=== PATIENT | female | born 1950 | race Hispanic/Latino ===

== ENCOUNTER 2017-03-30 19:00 | Emergency (ER) | payer MEDICAID, MEDICARE ==
[2017-03-30 22:35] LABS: HEMOGLOBIN 12.2 g/dL (11.0-16.0); MEAN CELL VOLUME 87.8 fL (81.0-99.0); MEAN CORPUSCULAR HEMOGLOBIN 27.8 pg (27.0-31.0); MEAN CORPUSCULAR HGB CONC 31.7 g/dL (33.0-37.0); MEAN PLATELET VOLUME 8.7 fL (7.2-11.7); RBC 4.38 Mil/uL (3.80-5.20); WHITE BLOOD COUNT 9.6 K/uL (4.8-10.8)
[2017-03-30 22:42] LABS: ALB/GLOB RATIO 1.3 (1.0-2.1); ALBUMIN 4.1 g/dL (3.5-5.0); ALT/SGPT 22 U/L (9-52); AST/SGOT 17 U/L (14-36); BLOOD UREA NITROGEN 15 mg/dL (7-17); CALCIUM 8.6 mg/dl (8.6-10.4); GFR AFRICAN-AMERICAN > 60; GFR NON-AFRICAN AMERICAN > 60
--- NOTE | 2017-03-31 08:19 | CT ---
PROCEDURE: CT HEAD WITHOUT CONTRAST. HISTORY: Trauma COMPARISON: None available. TECHNIQUE: Axial computed tomography images were obtained through the head/brain without intravenous contrast. Radiation dose: Total exam DLP = 795.44 mGy-cm. This CT exam was performed using one or more of the following dose reduction techniques: Automated exposure control, adjustment of the mA and/or kV according to patient size, and/or use of iterative reconstruction technique. FINDINGS: HEMORRHAGE: No intracranial hemorrhage. BRAIN: There are mild chronic microangiopathic changes. There is no mass, mass effect or abnormal extra-axial fluid collection. VENTRICLES: There is mild age-related global parenchymal volume loss and proportionate enlargement of the ventricles and cortical sulci. CALVARIUM: The skull base and calvarium are normal. PARANASAL SINUSES: There is a fluid level in the left maxillary sinus with aerosolized secretions. The remaining included paranasal sinuses are clear. MASTOID AIR CELLS: Predominantly clear. OTHER FINDINGS: None. IMPRESSION: No acute intracranial abnormality. Mild chronic microangiopathic changes and mild age-related global parenchymal volume loss. Fluid level in the left maxillary sinus could represent acute sinusitis in the appropriate clinical setting. A preliminary report was provided by [employer] [facility].
--- NOTE | 2017-04-18 15:30 | CARD ---
APPROVED REPORT EKG Measurement Heart [id number] <Conclusion> Normal sinus rhythm Low voltage QRS Cannot rule out Anterior infarct, age undetermined Abnormal ECG
== END 2017-03-30 22:59 | disposition home or self-care (01) ==
LOC: C.ER 19:00
DX: S01.01XA Laceration without foreign body of scalp, initial encounter (principal); W18.39XA Other fall on same level, initial encounter; Y93.89 Activity, other specified; Y92.096 Garden or yard of other non-institutional residence as the place of occurrence of the external cause

== ENCOUNTER 2017-05-23 13:44 | Inpatient (IN) | payer MEDICARE ==
[2017-05-23 13:58] VITALS: BMI 32.4
[2017-05-23] MEDS ORDERED: Sodium Chloride 0.9% 1,000 ML IV ONE (14:12)
[2017-05-23] MEDS ORDERED: Sodium Chloride 0.9% 1,000 ML ONE (14:26)
--- NOTE | 2017-05-23 14:39 | C.PDOC ---
History Of Present Illness Patient is a 66 y/o female, whose past medical history includes diabetes and HTN , presents to ED for evaluation of painful mass to left buttock around the tailbone region that developed gradually over the last few days. Pain is described as localized and reproducible. Pt states she had a temperature of 102 at home. Otherwise, denies any drainage, abdominal pain, n/v/d, chills, dysuria , hematuria, frequency, bowel/bladder incontinence or retention, flank pain, focal weakness, sensory deficit. No other complaints at this time. Time Seen by Provider: 05/23/17 14:07 Chief Complaint (Nursing): Abnormal Skin Integrity History Per: Patient History/Exam Limitations: no limitations Onset/Duration Of Symptoms: Days Current Symptoms Are (Timing): Still Present Location Of Injury: Left: Buttock, Posterior: Buttock Quality Of Symptoms: Painful. denies: Itching, Draining Recent travel outside of the [place]: No Additional History Per: Patient Past Medical History Reviewed: Historical Data, Nursing Documentation, Vital Signs Vital Signs: Last Vital Signs Temp 98.2 F 05/25/17 15:00 Pulse 73 05/25/17 15:00 Resp 20 05/25/17 15:00 BP 105/72 05/25/17 15:00 Pulse Ox 96 05/25/17 16:26 - Medical History PMH: Diverticulitis, HTN, Hypercholesterolemia Family History: States: No Known Family Hx - Social History Hx Alcohol Use: No Hx Substance Use: No - Immunization History Hx Influenza Vaccination: Yes Review Of Systems Except As Marked, All Systems Reviewed And Found Negative. Constitutional: Positive for: Fever. Negative for: Chills Cardiovascular: Negative for: Chest Pain, Palpitations Respiratory: Negative for: Cough, Shortness of Breath Gastrointestinal: Negative for: Nausea, Vomiting, Abdominal Pain, Diarrhea, Constipation Genitourinary: Negative for: Dysuria, Frequency, Incontinence, Hematuria, Vaginal Discharge, Pelvic Pain Musculoskeletal: Negative for: Neck Pain Skin: Positive for: Other (painful mass to left buttock around tailbone region) . Negative for: Rash Neurological: Negative for: Weakness, Numbness, Headache, Dizziness Physical Exam - Physical Exam Appears: Non-toxic, No Acute Distress Skin: Normal Color, Warm, Dry, Other (deep tender mass to left gluteus close to anus with mild erythema. No fluctuance. No proximal streaking. ) Head: Normacephalic Eye(s): bilateral: PERRL Oral Mucosa: Moist Neck: Normal ROM, Supple Cardiovascular: Rhythm Regular, No Murmur Respiratory: No Accessory Muscle Use, No Rales, No Rhonchi, No Wheezing Gastrointestinal/Abdominal: Soft, No Tenderness Rectal: Normal Exam, Rectal Tone (normal) Back: Normal Inspection, No CVA Tenderness, No Vertebral Tenderness Extremity: Normal ROM, No Deformity Extremity: Bilateral: Atraumatic Neurological/Psych: Oriented x3, Normal Speech ED Course And Treatment - Laboratory Results Result Diagrams: 05/25/17 07:27 05/25/17 07:27 Lab Interpretation: Abnormal O2 Sat by Pulse Oximetry: 96 (on RA) Pulse Ox Interpretation: Normal - CT Scan/US Ct abd/pelvis Other Rad Studies (CT/US): Radiology Report Reviewed CT/US Interpretation: Creator : Shauna Chase MD. Dictator : Door Closer Mechanic : Contracting Officer : Shauna Chase MD. Approver2 : Report Date : 05/23/2017 17:15:01. My Comment : . PROCEDURE: CT Abdomen and Pelvis with contrast. HISTORY: Right gluteal abscess. COMPARISON: None available. TECHNIQUE: Contrast dose: 100 cc Visipaque 320. Radiation dose: Total exam DLP = 674.47 mGy-cm. This CT exam was performed using one or more of the following dose reduction techniques: Automated exposure control, adjustment of the mA and/or kV according to patient size, and/or use of iterative reconstruction technique. FINDINGS: LOWER THORAX: Mild left basilar atelectasis. No visible pleural effusion or pneumothorax. Moderate hiatal hernia. LIVER: Unremarkable. GALLBLADDER AND BILE DUCTS: Unremarkable. PANCREAS: Unremarkable. SPLEEN: Unremarkable. ADRENALS: Unremarkable. KIDNEYS AND URETERS: The kidneys enhance symmetrically. No hydronephrosis or obstructing calculus identified. VASCULATURE: No aortic aneurysm. BOWEL: Stomach is nondistended. Lack of oral contrast limits evaluation for bowel pathology. Bowel loops appear within normal limits of caliber without evidence of obstruction. APPENDIX: The appendix appears within normal limits of caliber. No secondary signs of acute appendicitis. PERITONEUM: No significant free fluid. No definite free air. LYMPH NODES: No bulky adenopathy. BLADDER : Unremarkable. REPRODUCTIVE: The uterus is present. BONES: Degenerative changes. OTHER FINDINGS: Evidence of left perirectal fluid collection with peripheral hyperdensity/enhancement consistent with abscess measuring approximately 3.0 x 2.4 cm (series 3, image 164). IMPRESSION: Evidence of left perirectal fluid collection with peripheral hyperdensity/enhancement consistent with abscess measuring approximately 3.0 x 2.4 cm. Moderate hiatal hernia. Progress Note: Plan: Blood work, UA, blood culture, Abd & pelvis CT. Patient was given IV fluids, and Toradol. On re-evaluation,pt remained unchanged. Blood work review- mild leukocytosis w/left shift. Imaging results review and c /w perirectal abscess. Case discussed with , admission with surgical consult of recommend. in ED, evaluated pt. Admission cofirmed. NPO after midnight. Pt is in pain. Pt reports, has allergy to morphine " but was able tolerate Dilaudid". Disposition - Disposition Disposition: HOSPITALIZED Disposition Time: 17:25 Condition: STABLE - Clinical Impression Clinical Impression: Perirectal abscess - PA / FAMILY SPECIALIST / Resident Statement MD/DO has reviewed & agrees with the documentation as recorded. - Scribe Statement The provider has reviewed the documentation as recorded by the Anirudh Encarnacion All medical record entries made by the Anirudh were at my direction and personally dictated by me. I have reviewed the chart and agree that the record accurately reflects my personal performance of the history, physical exam, medical decision making, and the department course for this patient. I have also personally directed, reviewed, and agree with the discharge instructions and disposition.
[2017-05-23 14:44] LABS: BASO # 0.1 K/uL (0.0-0.2); BASO % 0.6 % (0.0-2.0); EOS % 0.2 % (0.0-4.0); HEMATOCRIT 35.4 % (34.0-47.0); LYMPH % 5.9 % (20.0-40.0); MEAN CORPUSCULAR HEMOGLOBIN 28.7 pg (27.0-31.0); MEAN CORPUSCULAR HGB CONC 32.6 g/dL (33.0-37.0); MEAN PLATELET VOLUME 8.3 fL (7.2-11.7); MONO # 1.1 K/uL (0.0-0.8); MONO % 6.9 % (0.0-10.0); PLATELET COUNT 265 K/uL (130-400); RED CELL DISTRIBUTION WIDTH 14.7 % (11.5-14.5); WHITE BLOOD COUNT 16.2 K/uL (4.8-10.8)
[2017-05-23 14:59] LABS: CHLORIDE 102 mmol/L (98-107)
[2017-05-23 15:00] LABS: POTASSIUM 4.2 mmol/L (3.6-5.2); SODIUM 140 mmol/L (132-148)
[2017-05-23 15:02] LABS: ALKALINE PHOSPHATASE 71 U/L (38-126); AST/SGOT 12 U/L (14-36); BILIRUBIN,TOTAL 0.5 mg/dL (0.2-1.3); BLOOD UREA NITROGEN 22 mg/dL (7-17); CARBON DIOXIDE 21 mmol/L (22-30); GFR AFRICAN-AMERICAN > 60; TOTAL PROTEIN 7.6 g/dL (6.3-8.3)
[2017-05-23 15:03] LABS: ALT/SGPT 21 U/L (9-52); CALCIUM 10.1 mg/dl (8.6-10.4); GLUCOSE,RANDOM 161 mg/dL (65-105)
[2017-05-23 15:24] LABS: TOTAL CELLS COUNTED 100
[2017-05-23 15:25] LABS: BASOPHIL 1 % (0-2); NEUTROPHIL 86 % (50-75)
[2017-05-23] MEDS ORDERED: Iodixanol 320 MG/ML 100 ML BOTTLE IV ONE (16:44)
--- NOTE | 2017-05-23 17:16 | CT ---
PROCEDURE: CT Abdomen and Pelvis with contrast HISTORY: Right gluteal abscess COMPARISON: None available. TECHNIQUE: Contrast dose: 100 cc Visipaque 320 Radiation dose: Total exam DLP = 674.47 mGy-cm. This CT exam was performed using one or more of the following dose reduction techniques: Automated exposure control, adjustment of the mA and/or kV according to patient size, and/or use of iterative reconstruction technique. FINDINGS: LOWER THORAX: Mild left basilar atelectasis. No visible pleural effusion or pneumothorax. Moderate hiatal hernia. LIVER: Unremarkable. GALLBLADDER AND BILE DUCTS: Unremarkable. PANCREAS: Unremarkable. SPLEEN: Unremarkable. ADRENALS: Unremarkable. KIDNEYS AND URETERS: The kidneys enhance symmetrically. No hydronephrosis or obstructing calculus identified. VASCULATURE: No aortic aneurysm. BOWEL: Stomach is nondistended. Lack of oral contrast limits evaluation for bowel pathology. Bowel loops appear within normal limits of caliber without evidence of obstruction. APPENDIX: The appendix appears within normal limits of caliber. No secondary signs of acute appendicitis. PERITONEUM: No significant free fluid. No definite free air. LYMPH NODES: No bulky adenopathy. BLADDER: Unremarkable. REPRODUCTIVE: The uterus is present. BONES: Degenerative changes. OTHER FINDINGS: Evidence of left perirectal fluid collection with peripheral hyperdensity/enhancement consistent with abscess measuring approximately 3.0 x 2.4 cm (series 3, image 164). IMPRESSION: Evidence of left perirectal fluid collection with peripheral hyperdensity/enhancement consistent with abscess measuring approximately 3.0 x 2.4 cm. Moderate hiatal hernia.
[2017-05-23 17:22] LABS: RBC URINE < 1 /hpf (0-3); TRANSITIONAL EPITHIAL 1 /hpf (0-3); URINE BACTERIA FEW (<OCC); URINE BILIRUBIN NEGATIVE (NEGATIVE); URINE BLOOD NEGATIVE (NEGATIVE); URINE COLOR Yellow (YELLOW); URINE GLUCOSE (UA) NORMAL (Normal); URINE KETONE NEGATIVE (NEGATIVE); URINE LEUKOCYTE ESTERASE 3+ Leu/uL (Negative); URINE PROTEIN NEGATIVE (NEGATIVE); URINE UROBILINOGEN NORMAL mg/dL (0.2-1.0); WBC URINE 48 /hpf (0-5)
[2017-05-23] MEDS ORDERED: Piperacillin/Tazobact 3.375 gm 100 ML IV STA (17:28)
[2017-05-23] MEDS ORDERED: HYDROmorphone 1 mg/ml ISec IVP STA (17:50)
[2017-05-23] MEDS ORDERED: Piperacillin/Tazobact 3.375 gm 100 ML IVPB ONE (17:53)
[2017-05-23] MEDS ORDERED: HYDROmorphone 1 mg/ml ISec ONE (17:53)
--- NOTE | 2017-05-23 17:57 | CP.PCM.CON ---
History of Present Illness - History of Present Illness History of Present Illness: Pt is a 66 y/o female who presents with zackery-anal pain that started 3 days ago which she first noticed while driving. Pt describes a "lump" that grew in size in the past few days and has made it uncomfortable for her to sit. Pt states there is no drainage from the area, but it is tender to palpation and warm. Pt also started having a fever 2 days ago, where she had a temp of 102F. Pt has been taking Motrin for pain control and to reduce the fever. Currently pt admits to fevers and chills. Denies N/V/C. PMHx: Diabetes Mellitus Type II, HTN, HLD, Hypothyroidism, Diverticulitis, Asthma. PSurgHx: Bowel Resection, Hiatal hernia repair. Allergies: Morphine Meds: See MAR Social Hx: Unemployed, lives at home with . Nonsmoker, occasional marihuana use. Review of Systems - Review of Systems Review of Systems: 12 pt ROS reviewed, unremarkable, except as stated in HPI. Past Patient History - Past Medical History & Family History Past Medical History?: Yes - Past Social History Smoking Status: Never Smoked Home Situation {Lives}: With Family - CARDIAC Hx Heart Attack: No Hx Hypercholesterolemia: Yes Hx Hypertension: Yes - PULMONARY Hx Asthma: Yes - RENAL Hx Kidney Stones: Yes - ENDOCRINE/METABOLIC Hx Endocrine Disorders: Yes Hx Diabetes Mellitus Type 2: Yes Hx Hypothyroidism: Yes - GASTROINTESTINAL Hx Diverticulitis: Yes - PSYCHIATRIC Hx Substance Use: No - SURGICAL HISTORY Hx Surgeries: Yes Hx Herniorrhaphy: Yes Other/Comment: BOWEL RESECTION - ANESTHESIA Hx Anesthesia: Yes Hx Anesthesia Reactions: No Meds Allergies/Adverse Reactions: Allergies Allergy/AdvReac Type Severity Reaction Status Date / Time morphine Allergy Verified 05/23/17 15:10 - Medications Medications: Current Medications Piperacillin Sod/Tazobactam Sod (Zosyn 3.375 In Ns 100ml) 100 mls @ 200 mls/hr IV STAT STA Stop: 05/23/17 17:57 Physical Exam - Constitutional Appears: Non-toxic, No Acute Distress - Head Exam Head Exam: ATRAUMATIC - Eye Exam Eye Exam: EOMI - ENT Exam ENT Exam: Mucous Membranes Moist - Respiratory Exam Respiratory Exam: NORMAL BREATHING PATTERN. absent: Accessory Muscle Use - Cardiovascular Exam Cardiovascular Exam: +S1, +S2 - GI/Abdominal Exam GI & Abdominal Exam: Soft Additional comments: Midline abdominal scar. - Rectal Exam Additional comments: Area of fluctuance in the posterior region of rectum. - Extremities Exam Extremities exam: Positive for: normal inspection - Neurological Exam Neurological exam: Alert, Oriented x3 - Psychiatric Exam Psychiatric exam: Normal Affect, Normal Mood - Skin Skin Exam: Normal Color, Warm Additional comments: Warm and mildly erythematous along the zackery-anal region. Results - Vital Signs Recent Vital Signs: Last Vital Signs Temp 100 F H 05/23/17 17:09 Pulse 90 05/23/17 17:09 Resp 18 05/23/17 17:09 BP 125/67 05/23/17 17:09 Pulse Ox 96 05/23/17 17:52 - Labs Result Diagrams: 05/23/17 14:39 05/23/17 14:39 Assessment & Plan - Assessment and Plan (Free Text) Assessment: 66 y/o female with zackery-rectal abscess. - Warm compresses - Continue antibiotics - Continue pain medication - NPO after midnight - IV fluids - SCD - OR tomorrow with Dr. Hope for Incision & Drainage, consent in chart. Discussed with Dr. Jayy Wray PGY 2
[2017-05-23] MEDS ORDERED: HYDROmorphone 0.5 mg/0.5 ml ISec IVP PRN (19:50)
[2017-05-23] MEDS ORDERED: Piperacillin/Tazobact 3.375 GM in Sodium Chloride 100 ML IVPB SCH (20:00)
[2017-05-23] MEDS: Lactated Ringer's 1,000 ML IV SCH (20:23)
[2017-05-23] MEDS ORDERED: Albuterol-Ipratrop 3 mg / 0.5 (3 ml) UD INH PRN (21:39)
[2017-05-23] MEDS: metroNIDAZOLE IV 500 mg/100 ml 500 MG/100 ML BAG IVPB SCH (22:29)
--- NOTE | 2017-05-23 22:46 | CP.PCM.HP ---
History of Present Illness - History of Present Illness History of Present Illness: CC: "rectal pain" Patient is a 66 year old female with past medical history significant for HTN, Diabetes, Diverticular disease, who presented to the ED with complaint of rectal pain since Saturday, 05/20. Patient states that the pain is localized to the rectal region and is currently a 7/10 pain, with 10/10 at its worst. Patient states she has been using 400mg motrin and ice packs to help relieve the pain. Patient states that movement and any pressure on the rectum worsens the pain. Patient states she recently returned from the [facility] on April 30 and upon her return started having watery diarrhea. Patient states her entire family had similar symptoms. Patient denies hematochezia or blood on toilet paper. Patient states the diarrhea resolved on its own this past Saturday. Patient states last bowel movement was two days ago and was normal. Patient also reports fevers, chills, nausea, and bilious, non-bloody emesis. Patient denies dysuria, chest pain, palpitations. Patient does report eating less since the rectal pain began. Patient also reports weight loss of approximately 20 pounds over the past 5 months that is intentional weight loss. PMD: Knight PMHx: Restless leg, diverticulitis, DM, HTN, Hyperlipidemia, Asthma, hypothyroidism, anxiety/ depression PSHx: Hiatal hernia, large bowel resection for diverticulitis, kidney stone removal, tonsillectomy FamilyHx:Mother= Diverticulitis, Father= HTN, CVA, DM, Sister =Diverticulitis SocialHx: Tobacco=Denies, EtOH=Denies, Drugs= Recreational Marijuana smoker, states it helps with the abdominal pain, Living= Lives at home with her and son, Job= Retired Allergies: Morphine- slows respiratory rate Medications: Ambien 10mg, Tramadol 50mg Q6, Naproxen 500 BID, Sertraline 100mg , Pramipexole 0.125, Lipitor 40mh, Norvasc 5mg, Omeprezole 40mg BID, Lisinopril 40mg, Advair 500 once daily, Albuterol as needed, Levothyroxine 50mg, Metformin 500 BID Present on Admission - Present on Admission Any Indicators Present on Admission: No Review of Systems - Constitutional Constitutional: Chills, Fever, Weight Loss - EENT Eyes: absent: Change in Vision - Cardiovascular Cardiovascular: absent: Chest Pain, Dyspnea - Respiratory Respiratory: absent: Cough, Dyspnea - Gastrointestinal Gastrointestinal: Abdominal Pain, Nausea, Vomiting, Other (rectal pain). absent : Hematemesis, Hematochezia - Genitourinary Genitourinary: absent: Difficulty Urinating, Dysuria - Musculoskeletal Musculoskeletal: absent: Back Pain - Integumentary Integumentary: absent: Rash - Neurological Neurological: Weakness - Psychiatric Psychiatric: absent: Panic Attacks - Endocrine Endocrine: absent: Polydipsia, Polyphagia Past Patient History - Past Medical History & Family History Past Medical History?: Yes - Past Social History Smoking Status: Never Smoked - CARDIAC Hx Cardiac Disorders: Yes Hx Heart Attack: No Hx Hypercholesterolemia: Yes Hx Hypertension: Yes - PULMONARY Hx Respiratory Disorders: Yes Hx Asthma: Yes - NEUROLOGICAL Hx Neurological Disorder: No - HEENT Hx HEENT Problems: No - RENAL Hx Chronic Kidney Disease: Yes Hx Kidney Stones: Yes - ENDOCRINE/METABOLIC Hx Endocrine Disorders: Yes Hx Diabetes Mellitus Type 2: Yes Hx Hypothyroidism: Yes - HEMATOLOGICAL/ONCOLOGICAL Hx Blood Disorders: No - INTEGUMENTARY Hx Dermatological Problems: No - MUSCULOSKELETAL/RHEUMATOLOGICAL Hx Musculoskeletal Disorders: No Hx Falls: No - GASTROINTESTINAL Hx Gastrointestinal Disorders: Yes Hx Diverticulitis: Yes - GENITOURINARY/GYNECOLOGICAL Hx Genitourinary Disorders: No - PSYCHIATRIC Hx Psychophysiologic Disorder: No Hx Substance Use: No - SURGICAL HISTORY Hx Surgeries: Yes Hx Herniorrhaphy: Yes Other/Comment: BOWEL RESECTION - ANESTHESIA Hx Anesthesia: Yes Hx Anesthesia Reactions: No Hx Malignant Hyperthermia: No Has any member of the family had a problem w/ anesthesia?: No Meds Allergies/Adverse Reactions: Allergies Allergy/AdvReac Type Severity Reaction Status Date / Time morphine Allergy Verified 05/23/17 15:10 Physical Exam - Constitutional Appears: Non-toxic, No Acute Distress - Head Exam Head Exam: ATRAUMATIC, NORMOCEPHALIC - Eye Exam Eye Exam: EOMI - ENT Exam ENT Exam: Mucous Membranes Moist - Respiratory Exam Respiratory Exam: Clear to Auscultation Bilateral, NORMAL BREATHING PATTERN. absent: Rales, Rhonchi, Wheezes - Cardiovascular Exam Cardiovascular Exam: REGULAR RHYTHM, +S1, +S2 - GI/Abdominal Exam GI & Abdominal Exam: Normal Bowel Sounds, Soft. absent: Tenderness - Rectal Exam Rectal Exam: NORMAL INSPECTION. absent: Bloody Stool, Hemorrhoids - Extremities Exam Extremities exam: Positive for: normal inspection. Negative for: calf tenderness, pedal edema - Neurological Exam Neurological exam: Alert, Oriented x3 - Psychiatric Exam Psychiatric exam: Normal Affect - Skin Skin Exam: Warm Additional comments: skin moist Results - Vital Signs Recent Vital Signs: Last Vital Signs Temp 98.8 F 05/23/17 21:20 Pulse 91 H 05/23/17 19:50 Resp 20 05/23/17 19:50 BP 120/65 05/23/17 19:50 Pulse Ox 96 05/23/17 19:50 - Labs Result Diagrams: 05/23/17 14:39 05/23/17 14:39 Labs: Laboratory Results - last 24 hr 05/23/17 21:29 POC Glucose (mg/dL) 183 H Assessment & Plan - Assessment and Plan (Free Text) Assessment: Perirectal Abscess CT Abd/ Pelvis IV contrast: left perirectal fluid collection with peripheral hyperdensity/ enhancement consistent with abscess measuring approximately 3.0 x 2.4cm. moderate hiatal hernia Surgery, Dr. Hope consulted- help appreciated Patient NPO for I&D tomorrow morning WBC 16.2, %Neutrophils 86, no bands starting zosyn 3.375g q6h, flagyl 500mg q8h dilaudid 0.4mg IV q4h prn pain Tylenol and Motrin as needed for fever blood cultures collected, f/u results heme occult pending Diabetes patient s/p CT with IV contrast will hold home metformin for now accuchecks ACHS with sliding scale insulin Hypothyroidism continue home medication synthroid 50mcg daily HTN continue home medications: norvasc 5mg daily, lisinopril 40mg daily Depression/ anxiety continue home medication: zoloft 100mg daily Restless legs continue home medication: mirapex 0.125mg daily HLD continue equivalet for home medication lipitor 40mg: crestor 20mg HS Hx Asthma duonebs prn Prophylactic measure SCDs omeprazole Plan D/W Dr. Knight
[2017-05-23] MEDS: Piperacillin/Tazobact 3.375 GM in Sodium Chloride 100 ML IVPB SCH (23:55)
[2017-05-24] MEDS: HYDROmorphone 0.5 mg/0.5 ml ISec IVP PRN ×6 (02:28→22:02)
[2017-05-24] MEDS: Piperacillin/Tazobact 3.375 GM in Sodium Chloride 100 ML IVPB SCH ×4 (05:52→23:54)
[2017-05-24] MEDS: Lactated Ringer's 1,000 ML IV SCH ×4 (05:52→23:25)
[2017-05-24] MEDS: metroNIDAZOLE IV 500 mg/100 ml 500 MG/100 ML BAG IVPB SCH ×3 (06:43→21:59)
[2017-05-24] MEDS: Levothyroxine 50 MCG TAB PO SCH (06:54)
--- NOTE | 2017-05-24 07:10 | CP.PCM.PN ---
<Soni Watts - Last Filed: 05/24/17 13:53> Subjective - Date & Time of Evaluation Date of Evaluation: 05/24/17 Time of Evaluation: 07:00 - Subjective Subjective: Medicine Note for Dr. Knight Patient was seen and examined at bedside. Patient reports pain is well controlled. Denied fever, chills, headache, chest pain, abdominal pain, n/v/d/c , or urinary symptoms. Objective - Vital Signs/Intake and Output Vital Signs (last 24 hours): Temp Pulse Resp BP Pulse Ox 98.4 F 77 20 121/74 95 05/24/17 00:00 05/24/17 00:00 05/24/17 00:00 05/24/17 00:00 05/24/17 00:00 Intake and Output: 05/24/17 05/24/17 06:59 18:59 Intake Total 400 Balance 400 - Medications Medications: Current Medications Acetaminophen (Tylenol 325mg Tab) 650 mg PO Q6 PRN PRN Reason: Pain, moderate (4-7) Albuterol/Ipratropium (Duoneb 3 Mg/0.5 Mg (3 Ml) Ud) 3 ml INH RQ6 PRN PRN Reason: Shortness of Breath Amlodipine Besylate (Norvasc) 5 mg PO DAILY [facility] Docusate Sodium (Colace) 100 mg PO BID [facility] Hydromorphone HCl (Dilaudid) 0.5 mg IVP Q3H PRN PRN Reason: Pain, moderate (4-7) Last Admin: 05/24/17 06:45 Dose: 0.5 mg Lactated Ringer's (Lactated Ringer's) 1,000 mls @ 110 mls/hr IV .Q9H6M [facility] Last Admin: 05/24/17 05:52 Dose: 110 mls/hr Piperacillin Sod/Tazobactam (Sod 3.375 gm/ Sodium Chloride) 100 mls @ 200 mls/ hr IVPB Q6H [facility] Last Admin: 05/24/17 05:52 Dose: 200 mls/hr Metronidazole (Flagyl) 500 mg in 100 mls @ 100 mls/hr IVPB Q8 [facility] Last Admin: 05/24/17 06:43 Dose: 100 mls/hr Insulin Human Regular (Novolin R) 0 unit SC ACHS [facility] PRN Reason: Protocol Levothyroxine Sodium (Synthroid) 50 mcg PO DAILY@0630 [facility] Last Admin: 05/24/17 06:54 Dose: Not Given Lisinopril (Zestril) 40 mg PO DAILY [facility] Ondansetron HCl (Zofran Inj) 4 mg IVP Q6H PRN PRN Reason: Nausea/Vomiting Pantoprazole Sodium (Protonix Ec Tab) 40 mg PO BID [facility] Pramipexole Dihydrochloride (Mirapex) 0.125 mg PO DAILY [facility] Rosuvastatin Calcium (Crestor) 20 mg PO HS [facility] Last Admin: 05/23/17 22:25 Dose: 20 mg Sertraline HCl (Zoloft) 100 mg PO DAILY [facility] Zolpidem Tartrate (Ambien) 5 mg PO HS PRN PRN Reason: Insomnia Last Admin: 05/23/17 22:24 Dose: 5 mg - Constitutional Appears: No Acute Distress - Head Exam Head Exam: NORMAL INSPECTION, NORMOCEPHALIC - Eye Exam Eye Exam: EOMI, Normal appearance, PERRL Pupil Exam: NORMAL ACCOMODATION - ENT Exam ENT Exam: Mucous Membranes Moist - Respiratory Exam Respiratory Exam: Clear to Ausculation Bilateral, NORMAL BREATHING PATTERN. absent: Decreased Breath Sounds - Cardiovascular Exam Cardiovascular Exam: REGULAR RHYTHM, RRR, +S1, +S2 - GI/Abdominal Exam GI & Abdominal Exam: Soft, Normal Bowel Sounds. absent: Distended, Tenderness - Extremities Exam Extremities Exam: Normal Inspection. absent: Pedal Edema, Tenderness - Neurological Exam Neurological Exam: Alert, Awake, Oriented x3 - Psychiatric Exam Psychiatric exam: Normal Affect, Normal Mood - Skin Skin Exam: Dry, Intact, Normal Color, Warm Assessment and Plan - Assessment and Plan (Free Text) Plan: Perirectal Abscess CT Abd/ Pelvis IV contrast: left perirectal fluid collection with peripheral hyperdensity/ enhancement consistent with abscess measuring approximately 3.0 x 2.4cm. moderate hiatal hernia Surgery, Dr. Hope consulted- help appreciated Patient went for I&D today, removed 30cc of pus from the perirectal abscess Febrile, tachycardic, WBC 16.2, %Neutrophils 86, no bands starting zosyn 3.375g q6h, flagyl 500mg q8h dilaudid 0.4mg IV q4h prn pain heme occult negative Tylenol and Motrin as needed for fever blood cultures collected, f/u results UTI UA: +3 LE NS @ 100cc.hr f/u urine culture Diabetes patient s/p CT with IV contrast will hold home metformin for now accuchecks ACHS sliding scale insulin Hypothyroidism continue home medication synthroid 50mcg daily HTN continue home medications: norvasc 5mg daily, lisinopril 40mg daily Depression/ anxiety continue home medication: zoloft 100mg daily Restless legs continue home medication: mirapex 0.125mg daily HLD continue equivalet for home medication lipitor 40mg: crestor 20mg HS Hx Asthma duonebs prn Prophylactic measure SCDs omeprazole DW Mac Mckeon DO, PGY-1 <Mike Knight Jr. - Last Filed: 05/24/17 16:10> Objective - Vital Signs/Intake and Output Vital Signs (last 24 hours): Temp Pulse Resp BP Pulse Ox 98.9 F 86 14 112/59 L 99 05/24/17 13:20 05/24/17 14:15 05/24/17 14:15 05/24/17 14:15 05/24/17 14:15 Intake and Output: 05/24/17 05/24/17 06:59 18:59 Intake Total 400 500 Balance 400 500 - Medications Medications: Current Medications Acetaminophen (Tylenol 325mg Tab) 650 mg PO Q6 PRN PRN Reason: Pain, moderate (4-7) Last Admin: 05/24/17 08:22 Dose: 650 mg Albuterol/Ipratropium (Duoneb 3 Mg/0.5 Mg (3 Ml) Ud) 3 ml INH RQ6 PRN PRN Reason: Shortness of Breath Amlodipine Besylate (Norvasc) 5 mg PO DAILY [facility] Last Admin: 05/24/17 09:21 Dose: Not Given Docusate Sodium (Colace) 100 mg PO BID [facility] Last Admin: 05/24/17 09:19 Dose: Not Given Hydromorphone HCl (Dilaudid) 0.5 mg IVP Q3H PRN PRN Reason: Pain, moderate (4-7) Last Admin: 05/24/17 11:27 Dose: 0.5 mg Lactated Ringer's (Lactated Ringer's) 1,000 mls @ 110 mls/hr IV .Q9H6M [facility] Last Admin: 05/24/17 14:45 Dose: Not Given Piperacillin Sod/Tazobactam (Sod 3.375 gm/ Sodium Chloride) 100 mls @ 200 mls/ hr IVPB Q6H [facility] Last Admin: 05/24/17 13:03 Dose: Not Given Metronidazole (Flagyl) 500 mg in 100 mls @ 100 mls/hr IVPB Q8 [facility] Last Admin: 05/24/17 14:00 Dose: 100 mls Insulin Human Regular (Novolin R) 0 unit SC ACHS [facility] PRN Reason: Protocol Last Admin: 05/24/17 12:39 Dose: Not Given Levothyroxine Sodium (Synthroid) 50 mcg PO DAILY@0630 [facility] Last Admin: 05/24/17 06:54 Dose: Not Given Lisinopril (Zestril) 40 mg PO DAILY [facility] Last Admin: 05/24/17 09:21 Dose: Not Given Ondansetron HCl (Zofran Inj) 4 mg IVP Q6H PRN PRN Reason: Nausea/Vomiting Oxycodone/Acetaminophen (Percocet 5/325 Mg Tab) 1 tab PO Q4H PRN PRN Reason: Pain, moderate (4-7) Stop: 05/27/17 13:19 Pantoprazole Sodium (Protonix Ec Tab) 40 mg PO BID [facility] Last Admin: 05/24/17 09:21 Dose: Not Given Pramipexole Dihydrochloride (Mirapex) 0.125 mg PO DAILY [facility] Last Admin: 05/24/17 09:20 Dose: Not Given Rosuvastatin Calcium (Crestor) 20 mg PO HS [facility] Last Admin: 05/23/17 22:25 Dose: 20 mg Sertraline HCl (Zoloft) 100 mg PO DAILY [facility] Last Admin: 05/24/17 09:21 Dose: Not Given Zolpidem Tartrate (Ambien) 5 mg PO HS PRN PRN Reason: Insomnia Last Admin: 05/23/17 22:24 Dose: 5 mg Attending/Attestation - Attestation I have personally seen and examined this patient.: Yes I have fully participated in the care of the patient.: Yes I have reviewed all pertinent clinical information, including history, physical exam and plan: Yes Notes (Text): 05/24/17 16:10 Agree with resident note and plan of care
[2017-05-24] MEDS ORDERED: Sodium Chloride 0.9% 1,000 ML IV SCH (07:15)
[2017-05-24] MEDS: (Novolin R) Insulin Human Regular 100 units/ml vial SC SCH ×4 (08:08→22:09)
[2017-05-24] MEDS: Pantoprazole 40 mg EC Tab PO SCH ×2 (09:21→17:32)
[2017-05-24] MEDS ORDERED: Propofol 10 mg/ml Inj (20 ML) ONE (12:07)
[2017-05-24] MEDS ORDERED: Midazolam 2 MG/2 ML VIAL ONE (12:07)
[2017-05-24] MEDS ORDERED: Lidocaine Hydrochloride 5 ML INJ ONE (12:09)
[2017-05-24] MEDS ORDERED: Lactated Ringer's 1,000 ML IV ONE (12:45)
--- NOTE | 2017-05-24 13:17 | PCM.SURG1 ---
Surgeon's Initial Post Op Note - Surgeon's Notes Surgeon: kd Service Dismantler: 0 Type of Anesthesia: General LMA Anesthesia Administered By: harry Pre-Operative Diagnosis: zackery rectal abscess Operative Findings: large abscess over 30cc pus Post-Operative Diagnosis: " Operation Performed: incision and drainage of rectal abscess Specimen/Specimens Removed: culture Estimated Blood Loss: EBL {In ML}: 10 Blood Products Given: N/A Drains Used: No Drains Post-Op Condition: Good Date of Surgery/Procedure: 05/24/17 Time of Surgery/Procedure: 13:17
[2017-05-24] MEDS ORDERED: Oxycodone/Acetaminophen 5/325 mg Tab PO PRN (13:18)
[2017-05-24 17:20] VITALS: RESP 20
--- NOTE | 2017-05-25 02:20 | OP ---
PROCEDURE DATE: 05/24/2017 PREOPERATIVE DIAGNOSIS: Perirectal abscess. POSTOPERATIVE DIAGNOSIS: Perirectal abscess PROCEDURE CARRIED OUT: Drain into large perirectal abscess. SURGEON: Param Hope Jr., MD. RADIO DESPATCHER: None. ANESTHESIOLOGIST: Mr. Arias. INDICATIONS: The patient is a middle-aged woman with a large rectal abscess. DESCRIPTION OF PROCEDURE: This was incised and drained in the midline posteriorly. OPERATIVE FINDINGS: Large amount of pus, non-foul smelling culture taken. Wound packed open. Hemostasis obtained. Irrigated. No operative complications or problems. Operation carried out is incision and drainage of rectal abscess. Param Hope Jr., MD
[2017-05-25] MEDS: Piperacillin/Tazobact 3.375 GM in Sodium Chloride 100 ML IVPB SCH ×4 (05:11→23:49)
[2017-05-25] MEDS: metroNIDAZOLE IV 500 mg/100 ml 500 MG/100 ML BAG IVPB SCH ×3 (05:12→21:11)
[2017-05-25] MEDS: Levothyroxine 50 MCG TAB PO SCH (05:43)
--- NOTE | 2017-05-25 07:30 | CP.PCM.PN ---
Subjective - Date & Time of Evaluation Date of Evaluation: 05/25/17 Time of Evaluation: 07:27 - Subjective Subjective: General Surgery Progress Note for Dr. Hope Patient seen and examined at bedside. No acute event overnight. Patient lying in bed comfortably. Patient still has some pain but states it is well controlled. Patient is tolerating diet. No other complaints at this time. Objective - Vital Signs/Intake and Output Vital Signs (last 24 hours): Temp Pulse Resp BP Pulse Ox 99.6 F 86 20 101/62 94 L 05/25/17 00:00 05/25/17 00:00 05/25/17 00:00 05/25/17 00:00 05/25/17 00:00 Intake and Output: 05/25/17 05/25/17 06:59 18:59 Intake Total 1180 Balance 1180 - Medications Medications: Current Medications Acetaminophen (Tylenol 325mg Tab) 650 mg PO Q6 PRN PRN Reason: Pain, moderate (4-7) Last Admin: 05/24/17 21:19 Dose: 650 mg Albuterol/Ipratropium (Duoneb 3 Mg/0.5 Mg (3 Ml) Ud) 3 ml INH RQ6 PRN PRN Reason: Shortness of Breath Amlodipine Besylate (Norvasc) 5 mg PO DAILY [facility] Last Admin: 05/24/17 09:21 Dose: Not Given Docusate Sodium (Colace) 100 mg PO BID [facility] Last Admin: 05/24/17 17:32 Dose: 100 mg Hydromorphone HCl (Dilaudid) 0.5 mg IVP Q3H PRN PRN Reason: Pain, moderate (4-7) Last Admin: 05/24/17 22:02 Dose: 0.5 mg Lactated Ringer's (Lactated Ringer's) 1,000 mls @ 110 mls/hr IV .Q9H6M [facility] Last Admin: 05/24/17 23:25 Dose: Not Given Piperacillin Sod/Tazobactam (Sod 3.375 gm/ Sodium Chloride) 100 mls @ 200 mls/ hr IVPB Q6H [facility] Last Admin: 05/25/17 05:11 Dose: 200 mls/hr Metronidazole (Flagyl) 500 mg in 100 mls @ 100 mls/hr IVPB Q8 [facility] Last Admin: 05/25/17 05:12 Dose: 100 mls/hr Insulin Human Regular (Novolin R) 0 unit SC ACHS [facility] PRN Reason: Protocol Last Admin: 05/24/17 22:09 Dose: Not Given Levothyroxine Sodium (Synthroid) 50 mcg PO DAILY@0630 [facility] Last Admin: 05/25/17 05:43 Dose: 50 mcg Lisinopril (Zestril) 40 mg PO DAILY [facility] Last Admin: 05/24/17 09:21 Dose: Not Given Ondansetron HCl (Zofran Inj) 4 mg IVP Q6H PRN PRN Reason: Nausea/Vomiting Oxycodone/Acetaminophen (Percocet 5/325 Mg Tab) 1 tab PO Q4H PRN PRN Reason: Pain, moderate (4-7) Stop: 05/27/17 13:19 Pantoprazole Sodium (Protonix Ec Tab) 40 mg PO BID [facility] Last Admin: 05/24/17 17:32 Dose: 40 mg Pramipexole Dihydrochloride (Mirapex) 0.125 mg PO DAILY [facility] Last Admin: 05/24/17 09:20 Dose: Not Given Rosuvastatin Calcium (Crestor) 20 mg PO HS [facility] Last Admin: 05/24/17 21:18 Dose: 20 mg Sertraline HCl (Zoloft) 100 mg PO DAILY [facility] Last Admin: 05/24/17 09:21 Dose: Not Given Zolpidem Tartrate (Ambien) 5 mg PO HS PRN PRN Reason: Insomnia Last Admin: 05/23/17 22:24 Dose: 5 mg - Constitutional Appears: No Acute Distress - Head Exam Head Exam: ATRAUMATIC, NORMOCEPHALIC - Eye Exam Eye Exam: Normal appearance - ENT Exam ENT Exam: Mucous Membranes Moist - Respiratory Exam Respiratory Exam: NORMAL BREATHING PATTERN - Cardiovascular Exam Cardiovascular Exam: REGULAR RHYTHM - GI/Abdominal Exam GI & Abdominal Exam: Soft. absent: Tenderness - Extremities Exam Extremities Exam: absent: Calf Tenderness - Back Exam Additional comments: dressing in lower buttock area intact with some serosanguious stains - Neurological Exam Neurological Exam: Alert, Awake - Psychiatric Exam Psychiatric exam: Normal Affect, Normal Mood - Skin Skin Exam: Dry, Normal Color, Warm Assessment and Plan - Assessment and Plan (Free Text) Plan: 66 F with zackery-rectal abscess. - Continue antibiotics - Continue pain medication - Diabetic diet - Will DW Dr. Jayy Parikh PGY1
[2017-05-25 07:42] LABS: BASO # 0.1 K/uL (0.0-0.2); BASO % 0.8 % (0.0-2.0); EOS # 0.1 K/uL (0.0-0.7); HEMATOCRIT 29.5 % (34.0-47.0); LYMPH # 1.3 K/uL (1.0-4.3); LYMPH % 11.6 % (20.0-40.0); MEAN CELL VOLUME 88.2 fL (81.0-99.0); MEAN CORPUSCULAR HEMOGLOBIN 28.9 pg (27.0-31.0); MEAN CORPUSCULAR HGB CONC 32.8 g/dL (33.0-37.0); MEAN PLATELET VOLUME 8.7 fL (7.2-11.7); MONO # 0.8 K/uL (0.0-0.8); MONO % 7.4 % (0.0-10.0); RED CELL DISTRIBUTION WIDTH 13.9 % (11.5-14.5); WHITE BLOOD COUNT 11.5 K/uL (4.8-10.8)
[2017-05-25 07:50] LABS: INR 1.3
[2017-05-25] MEDS: (Novolin R) Insulin Human Regular 100 units/ml vial SC SCH ×4 (07:57→21:43)
--- NOTE | 2017-05-25 08:14 | CP.PCM.PN ---
<Yovani Sabillon - Last Filed: 05/25/17 13:56> Subjective - Date & Time of Evaluation Date of Evaluation: 05/25/17 Time of Evaluation: 08:13 - Subjective Subjective: Medicine Note for Dr. Knight's Service Pt seen and examined at bedside. She had a bowel movement this morning and stool samples were collected. She states that she did well overnight and denies any acute symptoms. She verbalizes that her pain is well controlled. Objective - Vital Signs/Intake and Output Vital Signs (last 24 hours): Temp Pulse Resp BP Pulse Ox 99.6 F 86 20 101/62 94 L 05/25/17 00:00 05/25/17 00:00 05/25/17 00:00 05/25/17 00:00 05/25/17 00:00 Intake and Output: 05/25/17 05/25/17 06:59 18:59 Intake Total 1180 Balance 1180 - Medications Medications: Current Medications Acetaminophen (Tylenol 325mg Tab) 650 mg PO Q6 PRN PRN Reason: Pain, moderate (4-7) Last Admin: 05/24/17 21:19 Dose: 650 mg Albuterol/Ipratropium (Duoneb 3 Mg/0.5 Mg (3 Ml) Ud) 3 ml INH RQ6 PRN PRN Reason: Shortness of Breath Amlodipine Besylate (Norvasc) 5 mg PO DAILY [facility] Last Admin: 05/24/17 09:21 Dose: Not Given Docusate Sodium (Colace) 100 mg PO BID [facility] Last Admin: 05/24/17 17:32 Dose: 100 mg Hydromorphone HCl (Dilaudid) 0.5 mg IVP Q3H PRN PRN Reason: Pain, moderate (4-7) Last Admin: 05/24/17 22:02 Dose: 0.5 mg Lactated Ringer's (Lactated Ringer's) 1,000 mls @ 110 mls/hr IV .Q9H6M [facility] Last Admin: 05/24/17 23:25 Dose: Not Given Piperacillin Sod/Tazobactam (Sod 3.375 gm/ Sodium Chloride) 100 mls @ 200 mls/ hr IVPB Q6H [facility] Last Admin: 05/25/17 05:11 Dose: 200 mls/hr Metronidazole (Flagyl) 500 mg in 100 mls @ 100 mls/hr IVPB Q8 [facility] Last Admin: 05/25/17 05:12 Dose: 100 mls/hr Insulin Human Regular (Novolin R) 0 unit SC ACHS [facility] PRN Reason: Protocol Last Admin: 05/25/17 07:57 Dose: Not Given Levothyroxine Sodium (Synthroid) 50 mcg PO DAILY@0630 [facility] Last Admin: 05/25/17 05:43 Dose: 50 mcg Lisinopril (Zestril) 40 mg PO DAILY [facility] Last Admin: 05/24/17 09:21 Dose: Not Given Ondansetron HCl (Zofran Inj) 4 mg IVP Q6H PRN PRN Reason: Nausea/Vomiting Oxycodone/Acetaminophen (Percocet 5/325 Mg Tab) 1 tab PO Q4H PRN PRN Reason: Pain, moderate (4-7) Stop: 05/27/17 13:19 Pantoprazole Sodium (Protonix Ec Tab) 40 mg PO BID [facility] Last Admin: 05/24/17 17:32 Dose: 40 mg Pramipexole Dihydrochloride (Mirapex) 0.125 mg PO DAILY [facility] Last Admin: 05/24/17 09:20 Dose: Not Given Rosuvastatin Calcium (Crestor) 20 mg PO HS [facility] Last Admin: 05/24/17 21:18 Dose: 20 mg Sertraline HCl (Zoloft) 100 mg PO DAILY [facility] Last Admin: 05/24/17 09:21 Dose: Not Given Zolpidem Tartrate (Ambien) 5 mg PO HS PRN PRN Reason: Insomnia Last Admin: 05/23/17 22:24 Dose: 5 mg - Labs Labs: 05/25/17 07:27 PT 14.2 SECONDS (9.7-12.2) H 05/25/17 07:27 INR 1.3 05/25/17 07:27 APTT 27 SECONDS (21-34) 05/25/17 07:27 - Constitutional Appears: No Acute Distress - Head Exam Head Exam: ATRAUMATIC - Eye Exam Eye Exam: EOMI, Normal appearance - ENT Exam ENT Exam: Mucous Membranes Moist - Respiratory Exam Respiratory Exam: Clear to Ausculation Bilateral - Cardiovascular Exam Cardiovascular Exam: REGULAR RHYTHM - GI/Abdominal Exam GI & Abdominal Exam: Soft. absent: Tenderness - Rectal Exam Additional comments: dressing on wound has serosanguineous discharge. does not appear purulent - Extremities Exam Extremities Exam: Normal Inspection. absent: Calf Tenderness - Neurological Exam Neurological Exam: Alert, Awake, Oriented x3 Assessment and Plan - Assessment and Plan (Free Text) Plan: Perirectal Abscess CT Abd/ Pelvis IV contrast: left perirectal fluid collection with peripheral hyperdensity/ enhancement consistent with abscess measuring approximately 3.0 x 2.4cm. moderate hiatal hernia Surgery, Dr. Hope consulted- help appreciated Patient went for I&D yesterday, removed 30cc of pus from the perirectal abscess Cultures were collected in OR- follow up results Febrile, tachycardic, WBC 16.2, %Neutrophils 86, no bands started zosyn 3.375g q6h, flagyl 500mg q8h 05/23 dilaudid 0.4mg IV q4h prn severe pain Percocet 1T PO q4hrs prn mod pain heme occult negative Stool culture collected today- follow up results Tylenol and Motrin as needed for fever blood cultures collected, f/u results- NGTD UTI UA: +3 LE NS @ 100cc.hr f/u urine culture Diabetes patient s/p CT with IV contrast will hold home metformin for now accuchecks ACHS sliding scale insulin Hypothyroidism continue home medication synthroid 50mcg daily HTN continue home medications: norvasc 5mg daily, lisinopril 40mg daily Depression/ anxiety continue home medication: zoloft 100mg daily Restless legs continue home medication: mirapex 0.125mg daily HLD continue equivalet for home medication lipitor 40mg: crestor 20mg HS Hx Asthma duonebs prn Insomnia Ambien 50mg PO hs prn Prophylactic measure SCDs Protonix Will discuss with Dr. Knight. <Mike Knight Jr. - Last Filed: 06/03/17 13:54> Objective - Vital Signs/Intake and Output Vital Signs (last 24 hours): Temp Pulse Resp BP Pulse Ox 98.4 F 83 20 118/69 97 05/27/17 08:04 05/27/17 08:04 05/27/17 08:04 05/27/17 08:04 05/27/17 08:04 - Labs Labs: 05/27/17 07:48 05/27/17 07:48 PT 14.2 SECONDS (9.7-12.2) H 05/25/17 07:27 INR 1.3 05/25/17 07:27 APTT 27 SECONDS (21-34) 05/25/17 07:27 Attending/Attestation - Attestation I have personally seen and examined this patient.: Yes I have fully participated in the care of the patient.: Yes I have reviewed all pertinent clinical information, including history, physical exam and plan: Yes Notes (Text): 06/03/17 13:54 Agree with resident note and plan of care
[2017-05-25 08:24] LABS: CHLORIDE 103 mmol/L (98-107); POTASSIUM 3.9 mmol/L (3.6-5.2); SODIUM 139 mmol/L (132-148)
[2017-05-25] MEDS: HYDROmorphone 0.5 mg/0.5 ml ISec IVP PRN ×3 (08:25→23:32)
[2017-05-25 08:26] LABS: GFR AFRICAN-AMERICAN > 60
[2017-05-25 08:27] LABS: ALKALINE PHOSPHATASE 50 U/L (38-126); ALT/SGPT 25 U/L (9-52); AST/SGOT 13 U/L (14-36); BILIRUBIN,TOTAL 0.5 mg/dL (0.2-1.3); BLOOD UREA NITROGEN 13 mg/dL (7-17); CALCIUM 8.4 mg/dl (8.6-10.4); CARBON DIOXIDE 26 mmol/L (22-30); GLUCOSE,RANDOM 97 mg/dL (65-105); TOTAL PROTEIN 5.9 g/dL (6.3-8.3)
[2017-05-25] MEDS: Lactated Ringer's 1,000 ML IV SCH ×2 (09:15→17:42)
[2017-05-25] MEDS: Pantoprazole 40 mg EC Tab PO SCH ×2 (09:16→17:18)
[2017-05-26] MEDS: Lactated Ringer's 1,000 ML IV SCH ×3 (03:00→20:10)
[2017-05-26] MEDS: metroNIDAZOLE IV 500 mg/100 ml 500 MG/100 ML BAG IVPB SCH ×3 (05:15→21:22)
[2017-05-26] MEDS: Piperacillin/Tazobact 3.375 GM in Sodium Chloride 100 ML IVPB SCH ×4 (05:15→23:41)
[2017-05-26] MEDS: Levothyroxine 50 MCG TAB PO SCH (07:01)
--- NOTE | 2017-05-26 07:37 | CP.PCM.PN ---
Subjective - Date & Time of Evaluation Date of Evaluation: 05/26/17 Time of Evaluation: 07:37 - Subjective Subjective: Medicine Note for Dr. Knight's Service Pt seen and examined at bedside. She has been passing stool and states that her pain is well controlled. She was seen by surgery yesterday packing/dressing was changed. She is tolerating PO intake, denies F/C/CP/SOB/N/V/D/C. No acute events overnight. Objective - Vital Signs/Intake and Output Vital Signs (last 24 hours): Temp Pulse Resp BP Pulse Ox 98.9 F 73 20 108/65 95 05/26/17 07:19 05/26/17 07:19 05/26/17 07:19 05/26/17 07:19 05/26/17 07:19 Intake and Output: 05/26/17 05/26/17 06:59 18:59 Intake Total 2360 Balance 2360 - Medications Medications: Current Medications Acetaminophen (Tylenol 325mg Tab) 650 mg PO Q6 PRN PRN Reason: Pain, moderate (4-7) Last Admin: 05/24/17 21:19 Dose: 650 mg Albuterol/Ipratropium (Duoneb 3 Mg/0.5 Mg (3 Ml) Ud) 3 ml INH RQ6 PRN PRN Reason: Shortness of Breath Amlodipine Besylate (Norvasc) 5 mg PO DAILY [facility] Last Admin: 05/25/17 09:16 Dose: 5 mg Docusate Sodium (Colace) 100 mg PO BID [facility] Last Admin: 05/25/17 17:18 Dose: 100 mg Hydromorphone HCl (Dilaudid) 0.5 mg IVP Q3H PRN PRN Reason: Pain, moderate (4-7) Last Admin: 05/25/17 23:32 Dose: 0.5 mg Lactated Ringer's (Lactated Ringer's) 1,000 mls @ 110 mls/hr IV .Q9H6M [facility] Last Admin: 05/26/17 03:00 Dose: Not Given Piperacillin Sod/Tazobactam (Sod 3.375 gm/ Sodium Chloride) 100 mls @ 200 mls/ hr IVPB Q6H [facility] Last Admin: 05/26/17 05:15 Dose: 200 mls/hr Metronidazole (Flagyl) 500 mg in 100 mls @ 100 mls/hr IVPB Q8 [facility] Last Admin: 05/26/17 05:15 Dose: 100 mls/hr Insulin Human Regular (Novolin R) 0 unit SC ACHS [facility] PRN Reason: Protocol Last Admin: 05/25/17 21:43 Dose: Not Given Levothyroxine Sodium (Synthroid) 50 mcg PO DAILY@0630 [facility] Last Admin: 05/26/17 07:01 Dose: 50 mcg Lisinopril (Zestril) 40 mg PO DAILY [facility] Last Admin: 05/25/17 09:16 Dose: 40 mg Ondansetron HCl (Zofran Inj) 4 mg IVP Q6H PRN PRN Reason: Nausea/Vomiting Oxycodone/Acetaminophen (Percocet 5/325 Mg Tab) 1 tab PO Q4H PRN PRN Reason: Pain, moderate (4-7) Stop: 05/27/17 13:19 Pantoprazole Sodium (Protonix Ec Tab) 40 mg PO BID [facility] Last Admin: 05/25/17 17:18 Dose: 40 mg Pramipexole Dihydrochloride (Mirapex) 0.125 mg PO DAILY [facility] Last Admin: 05/25/17 09:16 Dose: 0.125 mg Rosuvastatin Calcium (Crestor) 20 mg PO HS [facility] Last Admin: 05/25/17 21:11 Dose: 20 mg Sertraline HCl (Zoloft) 100 mg PO DAILY [facility] Last Admin: 05/25/17 09:16 Dose: 100 mg Zolpidem Tartrate (Ambien) 5 mg PO HS PRN PRN Reason: Insomnia Last Admin: 05/25/17 23:33 Dose: 5 mg - Labs Labs: 05/25/17 07:27 05/25/17 07:27 PT 14.2 SECONDS (9.7-12.2) H 05/25/17 07:27 INR 1.3 05/25/17 07:27 APTT 27 SECONDS (21-34) 05/25/17 07:27 - Constitutional Appears: No Acute Distress - Head Exam Head Exam: ATRAUMATIC, NORMAL INSPECTION - Eye Exam Eye Exam: EOMI, Normal appearance - ENT Exam ENT Exam: Mucous Membranes Moist - Respiratory Exam Respiratory Exam: Clear to Ausculation Bilateral, NORMAL BREATHING PATTERN - Cardiovascular Exam Cardiovascular Exam: REGULAR RHYTHM - GI/Abdominal Exam GI & Abdominal Exam: Soft. absent: Tenderness - Neurological Exam Neurological Exam: Alert, Awake, Oriented x3 - Psychiatric Exam Psychiatric exam: Normal Affect, Normal Mood Assessment and Plan - Assessment and Plan (Free Text) Plan: Perirectal Abscess CT Abd/ Pelvis IV contrast: left perirectal fluid collection with peripheral hyperdensity/ enhancement consistent with abscess measuring approximately 3.0 x 2.4cm. moderate hiatal hernia Surgery, Dr. Hope consulted- help appreciated Patient went for I&D 05/24/17, removed 30cc of pus from the perirectal abscess Cultures were collected in OR Wound cx: gram negative rods Febrile, tachycardic, WBC 16.2, %Neutrophils 86, no bands started zosyn 3.375g q6h, flagyl 500mg q8h 05/23 dilaudid 0.4mg IV q4h prn severe pain Percocet 1T PO q4hrs prn mod pain heme occult negative Tylenol and Motrin as needed for fever blood cultures collected, f/u results- NGTD Stool ova and parasite- negative UTI- asymptomatic UA: +3 LE NS @ 100cc.hr urine culture- NGTD Pt is not complaining of dysuria or other UTI symptoms Diabetes patient s/p CT with IV contrast will hold home metformin for now accuchecks ACHS sliding scale insulin Hypothyroidism continue home medication synthroid 50mcg daily HTN continue home medications: norvasc 5mg daily, lisinopril 40mg daily Depression/ anxiety continue home medication: zoloft 100mg daily Restless legs continue home medication: mirapex 0.125mg daily HLD continue equivalet for home medication lipitor 40mg: crestor 20mg HS Hx Asthma duonebs prn Insomnia Ambien 50mg PO hs prn Prophylactic measure SCDs Protonix Will discuss with Dr. Knight.
[2017-05-26 07:48] LABS: BASO # 0.1 K/uL (0.0-0.2); BASO % 0.6 % (0.0-2.0); EOS # 0.3 K/uL (0.0-0.7); EOS % 2.6 % (0.0-4.0); HEMATOCRIT 29.2 % (34.0-47.0); LYMPH # 1.2 K/uL (1.0-4.3); LYMPH % 9.6 % (20.0-40.0); MEAN CELL VOLUME 87.5 fL (81.0-99.0); MEAN CORPUSCULAR HEMOGLOBIN 28.6 pg (27.0-31.0); MEAN CORPUSCULAR HGB CONC 32.7 g/dL (33.0-37.0); MEAN PLATELET VOLUME 8.8 fL (7.2-11.7); MONO # 0.9 K/uL (0.0-0.8); MONO % 7.1 % (0.0-10.0); NRBC % 0.1 % (0.0-2.0); PLATELET COUNT 252 K/uL (130-400); RED CELL DISTRIBUTION WIDTH 13.7 % (11.5-14.5); WHITE BLOOD COUNT 12.2 K/uL (4.8-10.8)
[2017-05-26] MEDS: HYDROmorphone 0.5 mg/0.5 ml ISec IVP PRN ×3 (07:51→23:53)
[2017-05-26 08:07] LABS: CHLORIDE 101 mmol/L (98-107)
[2017-05-26 08:08] LABS: SODIUM 138 mmol/L (132-148)
[2017-05-26 08:10] LABS: BILIRUBIN,TOTAL 0.4 mg/dL (0.2-1.3); CARBON DIOXIDE 29 mmol/L (22-30); GFR AFRICAN-AMERICAN > 60
[2017-05-26 08:11] LABS: ALKALINE PHOSPHATASE 49 U/L (38-126); ALT/SGPT 25 U/L (9-52); AST/SGOT 12 U/L (14-36); BLOOD UREA NITROGEN 9 mg/dL (7-17); CALCIUM 8.6 mg/dl (8.6-10.4); GLUCOSE,RANDOM 103 mg/dL (65-105); TOTAL PROTEIN 5.7 g/dL (6.3-8.3)
[2017-05-26] MEDS: (Novolin R) Insulin Human Regular 100 units/ml vial SC SCH ×4 (08:32→21:55)
[2017-05-26] MEDS: Pantoprazole 40 mg EC Tab PO SCH ×2 (10:14→17:11)
--- NOTE | 2017-05-26 10:21 | CP.PCM.PN ---
Subjective - Date & Time of Evaluation Date of Evaluation: 05/26/17 Time of Evaluation: 10:19 - Subjective Subjective: SURGERY NOTE FOR DR. KNIGHT S: Patient was seen and examined at bedside. Resting comfortably in NAD. Denies any issues overnight. This morning, patient admits to mild-moderate pain & tenderness overlying the perirectal incision site. The packing was removed and the abscess was no longer draining fluid. Patient currently denies signs of chest pain, SOB, n/v, d, abdominal pain, fever or chills. No other complaints are noted. Objective - Vital Signs/Intake and Output Vital Signs (last 24 hours): Temp Pulse Resp BP Pulse Ox 98.9 F 73 20 108/65 95 05/26/17 07:19 05/26/17 07:19 05/26/17 07:19 05/26/17 07:19 05/26/17 07:19 Intake and Output: 05/26/17 05/26/17 06:59 18:59 Intake Total 2360 Balance 2360 - Medications Medications: Current Medications Acetaminophen (Tylenol 325mg Tab) 650 mg PO Q6 PRN PRN Reason: Pain, moderate (4-7) Last Admin: 05/24/17 21:19 Dose: 650 mg Albuterol/Ipratropium (Duoneb 3 Mg/0.5 Mg (3 Ml) Ud) 3 ml INH RQ6 PRN PRN Reason: Shortness of Breath Amlodipine Besylate (Norvasc) 5 mg PO DAILY COUNT INCLUDES THE [facility] Last Admin: 05/26/17 10:14 Dose: 5 mg Docusate Sodium (Colace) 100 mg PO BID COUNT INCLUDES THE [facility] Last Admin: 05/26/17 10:14 Dose: 100 mg Hydromorphone HCl (Dilaudid) 0.5 mg IVP Q3H PRN PRN Reason: Pain, moderate (4-7) Last Admin: 05/26/17 07:51 Dose: 0.5 mg Lactated Ringer's (Lactated Ringer's) 1,000 mls @ 110 mls/hr IV .Q9H6M COUNT INCLUDES THE [facility] Last Admin: 05/26/17 03:00 Dose: Not Given Piperacillin Sod/Tazobactam (Sod 3.375 gm/ Sodium Chloride) 100 mls @ 200 mls/ hr IVPB Q6H COUNT INCLUDES THE [facility] Last Admin: 05/26/17 05:15 Dose: 200 mls/hr Metronidazole (Flagyl) 500 mg in 100 mls @ 100 mls/hr IVPB Q8 COUNT INCLUDES THE [facility] Last Admin: 05/26/17 05:15 Dose: 100 mls/hr Insulin Human Regular (Novolin R) 0 unit SC ACHS LEONORA PRN Reason: Protocol Last Admin: 05/26/17 08:32 Dose: Not Given Levothyroxine Sodium (Synthroid) 50 mcg PO DAILY@0630 COUNT INCLUDES THE [facility] Last Admin: 05/26/17 07:01 Dose: 50 mcg Lisinopril (Zestril) 40 mg PO DAILY COUNT INCLUDES THE [facility] Last Admin: 05/26/17 10:14 Dose: 40 mg Ondansetron HCl (Zofran Inj) 4 mg IVP Q6H PRN PRN Reason: Nausea/Vomiting Oxycodone/Acetaminophen (Percocet 5/325 Mg Tab) 1 tab PO Q4H PRN PRN Reason: Pain, moderate (4-7) Stop: 05/27/17 13:19 Pantoprazole Sodium (Protonix Ec Tab) 40 mg PO BID COUNT INCLUDES THE [facility] Last Admin: 05/26/17 10:14 Dose: 40 mg Pramipexole Dihydrochloride (Mirapex) 0.125 mg PO DAILY COUNT INCLUDES THE [facility] Last Admin: 05/26/17 10:14 Dose: 0.125 mg Rosuvastatin Calcium (Crestor) 20 mg PO HS COUNT INCLUDES THE [facility] Last Admin: 05/25/17 21:11 Dose: 20 mg Sertraline HCl (Zoloft) 100 mg PO DAILY COUNT INCLUDES THE [facility] Last Admin: 05/26/17 10:14 Dose: 100 mg Zolpidem Tartrate (Ambien) 5 mg PO HS PRN PRN Reason: Insomnia Last Admin: 05/25/17 23:33 Dose: 5 mg - Labs Labs: 05/26/17 06:45 05/26/17 06:45 PT 14.2 SECONDS (9.7-12.2) H 05/25/17 07:27 INR 1.3 05/25/17 07:27 APTT 27 SECONDS (21-34) 05/25/17 07:27 - Constitutional Appears: Non-toxic, No Acute Distress - Respiratory Exam Respiratory Exam: Clear to Ausculation Bilateral, NORMAL BREATHING PATTERN - Cardiovascular Exam Cardiovascular Exam: REGULAR RHYTHM, +S1, +S2 - Rectal Exam Additional comments: Rectal: Dressing and packing were removed. Incision margins are C/D/I and without surrounding erythema. No serosanguinous or purulent fluid noted. New dressings applied - Neurological Exam Neurological Exam: Alert, Awake Assessment and Plan - Assessment and Plan (Free Text) Assessment: 66F s/p I&D perirectal abscess POD2 Plan: - Dressing changes - patient stable - antibiotics - no further surgical intervention Further recs discuss with Dr. Jayy Key, PGY2
[2017-05-26 10:57] LABS: EOSINOPHIL 4 % (0-4); NEUTROPHIL 81 % (50-75); TOTAL CELLS COUNTED 100
[2017-05-26 10:58] LABS: LARGE PLATELETS PRESENT
[2017-05-27] MEDS: metroNIDAZOLE IV 500 mg/100 ml 500 MG/100 ML BAG IVPB SCH (05:11)
[2017-05-27] MEDS: Piperacillin/Tazobact 3.375 GM in Sodium Chloride 100 ML IVPB SCH ×2 (05:15→12:08)
[2017-05-27] MEDS: Levothyroxine 50 MCG TAB PO SCH (05:31)
[2017-05-27] MEDS: (Novolin R) Insulin Human Regular 100 units/ml vial SC SCH ×2 (08:00→12:09)
[2017-05-27 08:05] VITALS: BP 118/69; PULSE 83; TEMP 98.4; O2SAT 97
[2017-05-27 08:09] LABS: BASO % 0.4 % (0.0-2.0); EOS # 0.2 K/uL (0.0-0.7); EOS % 1.6 % (0.0-4.0); HEMATOCRIT 28.9 % (34.0-47.0); LYMPH # 1.2 K/uL (1.0-4.3); MEAN CELL VOLUME 87.2 fL (81.0-99.0); MEAN CORPUSCULAR HEMOGLOBIN 28.2 pg (27.0-31.0); MEAN CORPUSCULAR HGB CONC 32.3 g/dL (33.0-37.0); MEAN PLATELET VOLUME 8.8 fL (7.2-11.7); MONO # 1.1 K/uL (0.0-0.8); RED CELL DISTRIBUTION WIDTH 13.7 % (11.5-14.5)
[2017-05-27 08:47] LABS: CHLORIDE 99 mmol/L (98-107)
[2017-05-27 08:48] LABS: POTASSIUM 3.5 mmol/L (3.6-5.2); SODIUM 137 mmol/L (132-148)
[2017-05-27 08:50] LABS: ALKALINE PHOSPHATASE 64 U/L (38-126); ALT/SGPT 27 U/L (9-52); AST/SGOT 15 U/L (14-36); BILIRUBIN,TOTAL 0.4 mg/dL (0.2-1.3); BLOOD UREA NITROGEN 9 mg/dL (7-17); CARBON DIOXIDE 30 mmol/L (22-30); GFR AFRICAN-AMERICAN > 60; GLUCOSE,RANDOM 118 mg/dL (65-105); TOTAL PROTEIN 5.7 g/dL (6.3-8.3)
[2017-05-27 08:51] LABS: CALCIUM 8.4 mg/dl (8.6-10.4)
[2017-05-27] MEDS: Pantoprazole 40 mg EC Tab PO SCH (09:34)
[2017-05-27] MEDS ORDERED: Potassium Chloride 20 mEq ER Tab PO ONE (11:18)
--- NOTE | 2017-05-27 16:16 | CP.PCM.DIS ---
Provider - Provider Date of Admission: 05/23/17 17:20 Attending physician: Mike Knight Jr, MD Primary care physician: Dr. Knight Consults: Dr. Hope (surgery) Time Spent in preparation of Discharge (in minutes): 45 Diagnosis - Discharge Diagnosis (1) Perirectal abscess Status: Acute Comment: see discharge summary for details Hospital Course - Lab Results Lab Results: Micro Results 05/25/17 08:20 Stool Stool Culture - Final NO SALMONELLA, SHIGELLA OR CAMPYLOBACTER ISOLATED. 05/24/17 Unknown Rectum Gram Stain - Final 05/24/17 Unknown Rectum Wound Culture - Final Salmonella Group C 05/25/17 Unknown Urine Urine Culture - Final No Growth (<1,000 CFU/ML) 05/25/17 08:20 Stool Ova and Parasite Concentrate Exam - Final Most Recent Lab Values WBC 11.0 K/uL (4.8-10.8) H 05/27/17 07:48 RBC 3.31 Mil/uL (3.80-5.20) L 05/27/17 07:48 Hgb 9.3 g/dL (11.0-16.0) L 05/27/17 07:48 Hct 28.9 % (34.0-47.0) L 05/27/17 07:48 MCV 87.2 fL (81.0-99.0) 05/27/17 07:48 MCH 28.2 pg (27.0-31.0) 05/27/17 07:48 MCHC 32.3 g/dL (33.0-37.0) L 05/27/17 07:48 RDW 13.7 % (11.5-14.5) 05/27/17 07:48 Plt Count 262 K/uL (130-400) 05/27/17 07:48 MPV 8.8 fL (7.2-11.7) 05/27/17 07:48 Neut % (Auto) 77.0 % (50.0-75.0) H 05/27/17 07:48 Lymph % (Auto) 11.0 % (20.0-40.0) L 05/27/17 07:48 [place] % (Auto) 10.0 % (0.0-10.0) 05/27/17 07:48 Eos % (Auto) 1.6 % (0.0-4.0) 05/27/17 07:48 Baso % (Auto) 0.4 % (0.0-2.0) 05/27/17 07:48 Neut # 8.5 K/uL (1.8-7.0) H 05/27/17 07:48 Lymph # 1.2 K/uL (1.0-4.3) 05/27/17 07:48 [place] # 1.1 K/uL (0.0-0.8) H 05/27/17 07:48 Eos # 0.2 K/uL (0.0-0.7) 05/27/17 07:48 Baso # 0.0 K/uL (0.0-0.2) 05/27/17 07:48 Neutrophils % (Manual) 81 % (50-75) H 05/26/17 06:45 Lymphocytes % (Manual) 9 % (20-40) L 05/26/17 06:45 Monocytes % (Manual) 6 % (0-10) 05/26/17 06:45 Eosinophils % (Manual) 4 % (0-4) 05/26/17 06:45 Basophils % (Manual) 1 % (0-2) 05/23/17 14:39 Platelet Estimate Normal (NORMAL) 05/26/17 06:45 Large Platelets Present 05/26/17 06:45 Hypochromasia (manual) Slight 05/23/17 14:39 Poikilocytosis (manual Slight 05/23/17 14:39 Anisocytosis (manual) Slight 05/26/17 06:45 PT 14.2 SECONDS (9.7-12.2) H 05/25/17 07:27 INR 1.3 05/25/17 07:27 APTT 27 SECONDS (21-34) 05/25/17 07:27 Sodium 137 mmol/L (132-148) 05/27/17 07:48 Potassium 3.5 mmol/L (3.6-5.2) L 05/27/17 07:48 Chloride 99 mmol/L (98-107) 05/27/17 07:48 Carbon Dioxide 30 mmol/L (22-30) 05/27/17 07:48 Anion Gap 12 (10-20) 05/27/17 07:48 BUN 9 mg/dL (7-17) 05/27/17 07:48 Creatinine 0.6 MG/DL (0.7-1.2) L 05/27/17 07:48 Est GFR ( Amer) > 60 05/27/17 07:48 Est GFR (Non-Af Amer) > 60 05/27/17 07:48 POC Glucose (mg/dL) 126 mg/dL (65-110) H 05/27/17 10:48 Random Glucose 118 mg/dL (65-105) H 05/27/17 07:48 Calcium 8.4 mg/dl (8.6-10.4) L 05/27/17 07:48 Total Bilirubin 0.4 mg/dL (0.2-1.3) 05/27/17 07:48 AST 15 U/L (14-36) 05/27/17 07:48 ALT 27 U/L (9-52) 05/27/17 07:48 Alkaline Phosphatase 64 U/L (38-126) 05/27/17 07:48 Total Protein 5.7 g/dL (6.3-8.3) L 05/27/17 07:48 Albumin 2.8 g/dL (3.5-5.0) L 05/27/17 07:48 Globulin 2.9 gm/dL (2.2-3.9) 05/27/17 07:48 Albumin/Globulin Ratio 1.0 (1.0-2.1) 05/27/17 07:48 Urine Color Yellow (YELLOW) 05/23/17 17:13 Urine Clarity Clear (Clear) 05/23/17 17:13 Urine pH 5.0 (5.0-8.0) 05/23/17 17:13 Ur Specific [place] 1.021 (1.003-1.030) 05/23/17 17:13 Urine Protein Negative mg/dL (NEGATIVE) 05/23/17 17:13 Urine Glucose (UA) Normal mg/dL (Normal) 05/23/17 17:13 Urine Ketones Negative mg/dL (NEGATIVE) 05/23/17 17:13 Urine Blood Negative (NEGATIVE) 05/23/17 17:13 Urine Nitrate Negative (NEGATIVE) 05/23/17 17:13 Urine Bilirubin Negative (NEGATIVE) 05/23/17 17:13 Urine Urobilinogen Normal mg/dL (0.2-1.0) 05/23/17 17:13 Ur Leukocyte Esterase 3+ Cassius/uL (Negative) H 05/23/17 17:13 Urine WBC (Auto) 48 /hpf (0-5) H 05/23/17 17:13 Urine RBC (Auto) < 1 /hpf (0-3) 05/23/17 17:13 Ur Squamous Epith Cells 1 /hpf (0-5) 05/23/17 17:13 Ur Transition Epith Cell 1 /hpf (0-3) 05/23/17 17:13 Urine Bacteria Few (<OCC) H 05/23/17 17:13 Stool Occult Blood Negative (NEGATIVE) 05/24/17 03:53 - Hospital Course Hospital Course: "HPI: 66 year old female with past medical history significant for HTN, diabetes , diverticular disease, who presented to the ED with complaint of rectal pain since Saturday, 05/20. Patient states that the pain is localized to the rectal region and is currently a 7/10 pain, with 10/10 at its worst. Patient states she has been using 400 mg Motrin and ice packs to help relieve the pain. Patient states that movement and any pressure on the rectum worsens the pain. Patient states she recently returned from the [facility] on April 30 and upon her return, started having watery diarrhea. Patient states her entire family had similar symptoms. Patient denies hematochezia or blood on toilet paper. Patient states that the diarrhea resolved on its own this past Saturday. Patient states last bowel movement was two days ago and was normal. Patient also reports fevers, chills, nausea, and bilious non-bloody emesis. Patient denies dysuria, chest pain, palpitations. Patient does report eating less since the rectal pain began. Patient also reports weight loss of approximately 20 pounds over the past 5 months that is intentional weight loss." Hospital Course: Perirectal abscess: Initial FOBT was negative. Pain was controlled with Percocet q4h prn for moderate pain and Dilaudid 0.4 mg IV q4h prn for severe pain. CT Abd/Pelvis w/ IV contrast was ordered and showed left perirectal fluid with peripheral hyperdensity/enhancement consistent with abscess measuring approximately 3.0 x 2.4 cm along with a moderate hiatal hernia. Dr. Hope was consulted for I&D which was performed on 05/24/17. 30 cc of purulent drainage was collected in the OR. Wound cultures showed gram-negative rods and patient was started on Zosyn 3.375g q6h, and flagyl 500 mg q6h. UTI: UA showed +3 leukocyte esterase. Urine culture on 05/25 showed no growth. Packing taken out of wound on 05/26, no additional discharge. Patient to keep wound dry and clean. Patient's pain decreasing. Patient stable for discharge as per Dr. Hope and Dr. Knight. This is a summary of the patient's hospital course, please see chart for full details. Discharge Exam - Head Exam Head Exam: ATRAUMATIC, NORMAL INSPECTION - Eye Exam Eye Exam: EOMI, Normal appearance, PERRL - ENT Exam ENT Exam: Mucous Membranes Moist - Neck Exam Neck exam: Full Rom - Respiratory Exam Respiratory Exam: Clear to PA & Lateral, NORMAL BREATHING PATTERN. absent: Rales, Rhonchi, Wheezes, Respiratory Distress, Stridor - Cardiovascular Exam Cardiovascular Exam: REGULAR RHYTHM, RRR. absent: Gallop, Rubs, Systolic Murmur - GI/Abdominal Exam GI & Abdominal Exam: Normal Bowel Sounds. absent: Distended, Firm, Guarding - Extremities Exam Extremities exam: full ROM - Neurological Exam Neurological exam: Alert, Oriented x3 - Psychiatric Exam Psychiatric exam: Normal Affect, Normal Mood - Skin Skin Exam: Intact, Normal Color, Warm Additional comments: wound covered with dry, clean, intact dressing Discharge Plan - Discharge Medications Prescriptions: Ciprofloxacin HCl [Cipro] 500 mg PO BID #28 tablet - Follow Up Plan Condition: STABLE Disposition: HOME/ ROUTINE Instructions: Ciprofloxacin (By mouth), Abscess (GEN), Rectal Abscess (DC) Additional Instructions: Patient stable for discharge as per Dr. Knight. Patient to continue home medications as prescribed. Patient to take ciprofloxacin twice a day for 14 days. Patient should follow up with Dr. Hope within one week of discharge. Patient should have wound cleaned every day. Referrals: Mike Knight Jr., MD [Medical Doctor] - Param Hope Jr., MD [Staff Provider] -
== END 2017-05-27 14:34 | disposition home or self-care (01) | DRG 345 ==
LOC: C.ER 13:44 → C.9E 17:20 → C.3T 18:58
PROVIDERS: ADMIT Internal Medicine; ATTEND Internal Medicine
PROC: 0D9P0ZZ Drainage of Rectum, Open Approach (ICD-10-PCS; principal; 2017-05-24 17:15)
DX: K61.1 Rectal abscess (principal); N39.0 Urinary tract infection, site not specified; E11.22 Type 2 diabetes mellitus with diabetic chronic kidney disease; N18.9 Chronic kidney disease, unspecified; I12.9 Hypertensive chronic kidney disease with stage 1 through stage 4 chronic kidney disease, or unspecified chronic kidney disease; E03.9 Hypothyroidism, unspecified; F41.9 Anxiety disorder, unspecified; F32.9 Major depressive disorder, single episode, unspecified; G25.81 Restless legs syndrome; E78.5 Hyperlipidemia, unspecified; J45.909 Unspecified asthma, uncomplicated; G47.00 Insomnia, unspecified

== ENCOUNTER 2017-07-01 05:54 | Day surgery (SDC) | payer MEDICARE ==
[2017-07-01] MEDS ORDERED: Propofol 10 mg/ml Inj (20 ML) ONE ×2 (07:53→09:53)
[2017-07-01] MEDS ORDERED: Midazolam 2 MG/2 ML VIAL ONE ×2 (07:53→09:53)
[2017-07-01] MEDS ORDERED: Succinylcholine Chloride 20 mg/ml Syr (5 ml) IV ONE (07:57)
[2017-07-01] MEDS ORDERED: Lactated Ringer's 1,000 ML IV ONE ×2 (09:50→11:58)
[2017-07-01] MEDS ORDERED: ceFAZolin IV 1 gm in Dextrose 1 GM/50 ML BAG IVPB ONE (10:12)
[2017-07-01] MEDS ORDERED: HYDROmorphone 0.5 mg/0.5 ml ISec IVP PRN (10:24)
[2017-07-01] MEDS ORDERED: Rocuronium 10 mg/ml (5 ml) ONE (10:30)
[2017-07-01] MEDS ORDERED: Neostigmine Methylsulfate 3mg/3ml Syringe IV ONE (10:55)
[2017-07-01] MEDS ORDERED: Bupivacaine HCl 0.5% PF (10 ml) Inj ONE (10:56)
--- NOTE | 2017-07-01 11:14 | PCM.SURG1 ---
Surgeon's Initial Post Op Note - Surgeon's Notes Surgeon: Dr. Hope Unclaimed Property Officer: Dr. Noe PGY-3, Romi OMS-III Type of Anesthesia: General Endo, Local Pre-Operative Diagnosis: Incisional hernia Operative Findings: Incisional hernia (reducible) Post-Operative Diagnosis: Incisional hernia Operation Performed: Incisional hernia repair w/ mesh Specimen/Specimens Removed: none Estimated Blood Loss: EBL {In ML}: 25 Blood Products Given: N/A Drains Used: No Drains Post-Op Condition: Good Date of Surgery/Procedure: 07/01/17 Time of Surgery/Procedure: 11:14
[2017-07-01] MEDS ORDERED: Oxycodone/Acetaminophen 5/325 mg Tab PO PRN (11:15)
[2017-07-01] MEDS: HYDROmorphone 0.5 mg/0.5 ml ISec IVP PRN ×3 (11:31→11:51)
[2017-07-01 11:42] VITALS: O2SAT 100
[2017-07-01 12:46] VITALS: RESP 18
[2017-07-01 14:12] VITALS: BP 127/60; PULSE 66; TEMP 97
--- NOTE | 2017-07-01 15:35 | OP ---
PROCEDURE DATE: 07/01/2017 PREOPERATIVE DIAGNOSIS: Incisional hernia. POSTOPERATIVE DIAGNOSIS: Incisional hernia. PROCEDURE CARRIED OUT: Repair of incisional hernia with mesh. SURGEON: Dr. Hope. BULKING MACHINE OPERATOR: Dr. Noe. ANESTHESIA ADMINISTERED BY: Dr. Cleary. MESH USED: Ventrio mesh measuring 13.8 x 17.8 cm. INDICATIONS: The patient is a 66-year-old woman who previously had a history of diverticular disease with one stage procedure who presents with a hernia at the superior aspect adjacent to the umbilicus. OPERATIVE FINDINGS: This was a defect that was rather large and we used a large mesh to encompass the area of the weakened fascia. The mesh was put into the peritoneal cavity and sutured to the midline closure. ESTIMATED BLOOD LOSS: 25 mL. DESCRIPTION OF PROCEDURE: Prior to the operation, the patient underwent skin prep including washing, prepping, placement of a drape, antibiotics, special procedures, changing gloves a number of times to make sure that there is no contamination of the mesh. After this had all been done, the mesh was secured into position. The skin was closed with skin clips. Blood loss from the procedure was 25 mL. Operation carried out is repair of incisional hernia with mesh. Param Hope Jr., MD cc: Mike Knight MD
== END 2017-07-01 14:15 | disposition home or self-care (01) ==
LOC: C.SDS 05:54
PROVIDERS: ATTEND Surgery Vascular Surgery
DX: K43.2 Incisional hernia without obstruction or gangrene (principal)
CPT/HCPCS: 49560; 49568; 82948; C1781; J0690; J1170; J1885; J2001; J2250; J2405; J2704; J2710; J3010; J7120

== ENCOUNTER 2018-01-03 06:09 | Day surgery (SDC) | payer MEDICARE ==
[2018-01-03] MEDS ORDERED: Propofol 10 mg/ml Inj (20 ML) ONE ×2 (07:04→07:41)
[2018-01-03] MEDS ORDERED: Midazolam 2 MG/2 ML VIAL ONE (07:04)
[2018-01-03] MEDS ORDERED: HYDROmorphone 1 mg/ml ISec IVP PRN (07:07)
[2018-01-03] MEDS ORDERED: ceFAZolin 1 gm in NS 2 GM/200 ML BAG IVPB ONE (07:10)
[2018-01-03] MEDS ORDERED: Oxycodone/Acetaminophen 5/325 mg Tab PO PRN (08:29)
--- NOTE | 2018-01-03 08:29 | PCM.SURG1 ---
Surgeon's Initial Post Op Note - Surgeon's Notes Surgeon: Misty Best MD [employer] Business Development Manager: Chichi Watters PA-C Type of Anesthesia: General LMA Pre-Operative Diagnosis: Right wrist carpal tunnel syndrome Operative Findings: Right wrist carpal tunnel syndrome Post-Operative Diagnosis: Right wrist carpal tunnel syndrome Operation Performed: Right wrist. #1 carpal tunnel open release. #2 short arm spline placement Specimen/Specimens Removed: specimen= none. tourniquet time=12min at 250mmHg. complications= none. implants= none Estimated Blood Loss: EBL {In ML}: 3 Blood Products Given: N/A Drains Used: No Drains Post-Op Condition: Good Date of Surgery/Procedure: 01/03/18 Time of Surgery/Procedure: 08:29
[2018-01-03 10:10] VITALS: O2SAT 95
[2018-01-03 10:36] VITALS: BP 115/63; PULSE 89; RESP 18; TEMP 97.9
--- NOTE | 2018-01-04 00:22 | OP ---
PROCEDURE DATE: 01/03/2018 PREOPERATIVE DIAGNOSIS: Right wrist carpal tunnel syndrome. POSTOPERATIVE DIAGNOSIS: Right wrist carpal tunnel syndrome. PROCEDURE: Right wrist open carpal tunnel release and placement of short arm splint. SURGEON: Misty Best MD SOFTWARE CONSULTANT: Chichi Watters PA-C JUSTIFICATION FOR SOFTWARE CONSULTANT: Chichi Watters is a certified physician pharmacy affairs assistant who skilled surgical services, was an absolute necessity for successful completion of the procedure. He provided skilled surgical assistance with positioning of the patient, positioning of extremity, management of the surgical truong, retraction of the neurovascular structures, facilitating carpal tunnel release, wound closure, placement of short arm splint. Chichi Watters was present for the entire case and was an absolute necessity for successful completion of the procedure. TYPE OF ANESTHESIA: General anesthesia, LMA. COMPLICATIONS: None. IMPLANTS: None. SPECIMEN: None. DRAINS: None. ESTIMATED BLOOD LOSS: 3 mL. DISPOSITION: The patient was extubated and transferred to the PACU in stable condition and tolerated the procedure well. INDICATIONS FOR SURGERY: The patient is a 67-year-old female who was right hand dominant with a past medical history significant for diabetes and hypertension who presented to the office for the first time under my care on 12/24/2017 with bilateral wrist pain, right much worse than left wrist pain, radiating to the fingers for over 3 years. She denied any trauma. She admitted to progressively worsening pain and electric-like sensation with numbness to the radial forefingers of bilateral hands. The right was much worse than the left with more occasions of numbness and tingling in the right hand. She had undergone an EMG nerve conduction study to bilateral upper extremities on 09/17/2017 by [facility] that was read as; 1. Abnormal EMG/nerve conduction study. 2. Neurophysiological evidence of right median nerve dysfunction at the wrist suggested of moderate right carpal tunnel syndrome. 3. No physiological evidence of cervical radiculopathy at this time. X-rays taken in my office on 12/24/2017 including a carpal tunnel view showed no evidence of a bony region for a carpal tunnel syndrome. Overall, negative x-rays. Under the care of her pain management, Dr. Onesimo Cleary, she underwent 2 carpal tunnel injections with cortisone mixture that provided temporarily relief that only lasted for few weeks. By the time she presented to my office, she had felt significant conservative treatment over the past 3 years including 2 cortisone injections, steroid dose packs, antiinflammatory medications and cream, resting brace and physical therapy. She was indicated for right wrist carpal tunnel release and the patient was eager to undergo the procedure as soon as possible. The risk, benefits, and alternatives of the procedure were discussed at length with the patient with the risks including, but not limited to infection, neurovascular damage, failure of the release and recurrence, damage to the median nerve and the recurrent branch, permanent neurovascular injury, development of chronic pain and disability, development of blood clots including DVT and PE, loss of function, need for further surgery, stiffness, anesthesia reactions including . After answering all of her questions stated that she understood the risks and wished to proceed with surgery. We also discussed at length the degree of damage to the median nerve on her clinical presentation, and she stated that she understood that carpal tunnel release surgery will not turn back and regenerate the damage that was already done but our hope is that it would slow the progression of what she is feeling. She stated that she understood and wished to proceed with surgery. She was referred to her primary care physician, Dr. Mike Knight, for preoperative medical clearance and PATs and the procedure was scheduled at [facility] on 01/03/2018. PROCEDURE IN DETAIL: The patient was identified in the preoperative holding area and the right wrist was marked for surgery. Once again as described above, the risks, benefits and alternatives of the procedure were discussed at length with the patient and informed consent was obtained. After a brief discussion with anesthesia staff, perioperative IV antibiotics in the form of 2 gm of Ancef were administered, and the patient was taken to the operating room and placed in a well-padded operating room table with all bony prominences and superficial neurovascular structures well-padded. An initial timeout was done with the surgeon, anesthesia staff and OR staff, all in agreement with the patient, procedure being done and extremity being operated on. Tourniquet was placed high on the right arm and set to 250 mmHg, and after inflation, was infiltrated for a total of 12 minutes. Right upper extremity was prepped and draped in standard sterile fashion. A final timeout was done with the surgeon, anesthesia staff, OR staff, all in agreement with the patient, procedure being done and extremity being operated on after the patient was placed under general anesthesia without any complications in the form of LMA anesthesia. A small 1.5 cm incision was made at the intersecting lines of the radial aspect of the ring finger with the superior aspect of the thenar eminence. The incision was made in the crease of her palm at this region. This was done after the limb was exsanguinated and the tourniquet was inflated for a total tourniquet time of 12 minutes at 250 mmHg. An incision was made to the skin down to subcutaneous tissue and maintained good hemostasis. The palmar fascia was identified and shortly incised and the underlying transverse carpal tunnel fascia was identified. The distal fibers of the carpal tunnel fibers were identified and with the use of the Integra minimally invasive carpal tunnel release system, the underlying median nerve was protected after passing it over to remove any adhesions and to free up the nerve. The sled/blunt protector was placed over the median nerve underneath the carpal tunnel fibers. The transverse carpal tunnel fibers were then released completely from distal to proximal with the Integra blade. Digit palpation and a clamp were used to make sure there were no remaining fibers. There was a small band of tissue at the more proximal and a small band of tissue is still remaining at the more distal aspects which were released, well-protected in the median nerve with a blunt retractor under direct visualization. Once the final bands were released, there appeared to be no bands of tissue from the transverse carpal ligament compressing on the median nerve. The tourniquet was then deflated and good hemostasis was achieved. Wound closure was then carried out after the wound was copiously irrigated. Deep tissue was re-approximated with 2-0 Vicryl suture, followed by 2-0 and 3-0 nylon suture in alternating horizontal and simple suture pattern. Sterile dressings were applied followed by placement in a well-padded volar short arm splint. The patient was then awakened from anesthesia and transferred to the PACU in stable condition and tolerated the procedure well. DISPOSITION: The patient will be discharged home once she is recovered from anesthesia. She was instructed to keep the right arm elevated above the level of her heart and ice as much as possible. She was instructed to keep the dressings clean, dry, and intact as well as the splint. She was given a prescription for Percocet for pain control. She will follow up in my office within in one week and already has postoperative appointment set up. She will contact me directly with any questions or concerns. Misty Best MD
== END 2018-01-03 10:45 | disposition home or self-care (01) ==
LOC: C.SDS 06:09
PROVIDERS: ATTEND Student in an Organized Health Care Education/Training Program
DX: G56.01 Carpal tunnel syndrome, right upper limb (principal); J45.909 Unspecified asthma, uncomplicated; E11.40 Type 2 diabetes mellitus with diabetic neuropathy, unspecified; E78.5 Hyperlipidemia, unspecified; I10 Essential (primary) hypertension; E03.9 Hypothyroidism, unspecified; E66.9 Obesity, unspecified; K21.9 Gastro-esophageal reflux disease without esophagitis; Z79.84 Long term (current) use of oral hypoglycemic drugs; Z90.49 Acquired absence of other specified parts of digestive tract
CPT/HCPCS: 64721; 82948; J0690; J2001; J2250; J2405; J2704; J3010